=== PATIENT | female | born 1980 | race Hispanic/Latino ===

== ENCOUNTER 2017-04-19 23:04 | Emergency (ER) | payer SELFPAY ==
[~2017-04-19] VITALS: Ht 157.5 cm; Wt 71.8 kg
[~2017-04-19 23:04] MED LIST: ACET-1890 PO; DICY10CA56 PO; DICY20TA33 PO; FAMO20TA4 PO; HYDR2TAB28 PO; ONDA8TAB10 PO; TRAM50TA2 PO; [UNRECOGNIZED DRUG - REMARK] TOPICAL
[2017-04-19 23:06] VITALS: BP 127/90; RESP 16; O2SAT 98
--- NOTE | 2017-04-19 23:17 | ED.REPORT ---
HPI-Sore Throat ONLY HPI/PE done Apr 19, 2017 ED Provider: Nicola Andrea MD Pt is an otherwise healthy 36 year old female who presents to the ED complaining of throat pain onset yesterday. She c/o associated sore throat, fever (101, yesterday), odynophagia, and chills. She denies any other symptoms. Pt reports that she took Advil 1 hour prior to arrival with minimal relief. Nursing Notes Stated Complaint: SORE THROAT Chief Complaint: ENT & Mouth Nursing Notes Reviewed: Yes Allergies: Coded Allergies: shellfish derived (Verified Allergy, Severe, TONGUE, THROAT SWELLING, 04/19) Penicillins (Verified Allergy, Unknown, 04/19/17) Scheduled ([fentaNYL-Expunged Drug, Do Not Renew!]) 50 MCG/HR PATCH 50 PATCH TOPICAL Q3D@ 0830 Dicyclomine (Bentyl) 10 Mg Capsule 10 MG PO QID Prednisone (PredniSONE) 20 Mg Tablet 20 MG PO 04/19/17 Scheduled PRN Acetaminophen (Tylenol) 325 Mg Tablet 650 MG PO Q4H PRN PRN For Pain Dicyclomine (Bentyl) 20 Mg Tablet 20 MG PO QID PRN PRN cramps Famotidine (Famotidine) 20 Mg Tablet 20 MG PO DAILY PRN PRN For Epigastric Distress Hydromorphone (Hydromorphone) 2 Mg Tablet 2-4 MG PO Q3 PRN PRN For Pain Ondansetron ODT (Ondansetron ODT) 8 Mg Tab.rapdis 8 MG PO Q8 PRN PRN For Nausea Ondansetron ODT (Ondansetron ODT) 8 Mg Tab.rapdis 8 MG PO QID PRN PRN For Nausea Tramadol (Tramadol) 50 Mg Tablet 50 MG PO Q4H PRN PRN For Pain General Time Seen by MD: 23:16 Chief Complaint Other (sore throat) Hx Obtained From: Patient Arrived By: Walk-in Onset Occurred: Yesterday Symptom Duration: Since onset Location: : Tonsil left: Tonsil right Quality: Painful Severity: Current: Moderate Severity: Maximum: Moderate Recent Healthcare: No recent doctor visit, No recent hospitalization Similar Sx Previous: No Past Medical History Past Medical History Hx of ovarian cyst Past Surgical History Hernia repair Reports: Cholecystectomy Smoking History Never Smoker Social History Alcohol Use: Denies alcohol use Drug Use: Denies drug use Other Social History: Good social support, Lives with children, Local resident Occupation no work at this time, on L and [place] injury 04/2016 lives with significant other Ambulatory Status Independent Review of Systems + odynophagia Constitutional: Reports: Chills, Fever Ears / Nose / Throat: Reports: Sore throat, Throat pain Complete sys rev & neg: except as marked. Physical Exam Initial Vital Signs Vital Signs (First) Date Time Temp Pulse Resp B/P Pulse Ox O2 Delivery O2 Flow Rate FiO2 04/19/17 23:06 37.5 107 16 127/90 98 Room Air Initial VS: Reviewed, Vital signs abnormal Head / Eyes: Atraumatic, Normocephalic Respiratory: Breath sounds normal, Clear to auscultation, No respiratory distress Cardiovascular: Regular rate & rhythm, Heart sounds normal, Intact distal pulses Extremities: Vascular intact, Neuro intact Neurologic: Alert, Oriented, Nonfocal Psychiatric: Mood/affect normal, Behavior normal General/Constitutional: Awake, Alert Hot potato voice ENT: Airway patent, Tympanic membs NL Swollen tonsils; 3+ on left and 2+ on right. Neck: Full range of motion Tender bilateral anterior cervical adenopathy Skin: Atraumatic, No rash, Warm, Dry, Intact Interpretation & Diagnostics Lab Results Interpretation Lab Results Interpretation: Strep - positive Re-Eval/Medical Decision Med Decision/Clinical Course Uncomplicated strep pharyngitis without evidence of peritonsillar abscess or cellulitis. Source of Hx: Old records Re-Evaluation/Progress #1: Time of Eval: 23:23 Re-Evaluation/Progress Note: Pt rechecked. Tested pt for strep. All questions addressed. Re-Evaluation/Progress #2: Time of Eval: 23:39 Re-Evaluation/Progress Note: Pt rechecked. Informed pt of strep diagnosis. Informed pt of plan for discharge. Pt understands and agrees with plan for discharge. F/U instructions and RTER warnings given. All questions addressed. Counseled Regarding: Diagnosis, Need for follow-up, When/why to return to ED Discharge & Departure Primary Impression: Streptococcal sore throat Disposition: Home Discharge Condition All VS Reviewed: Yes Condition: Stable Patient Instructions: Strep Throat (ED) Additional Instructions: Strep throat. Azothromycin 250 mg, 2 pills now then 1 pill daily until gone, # 6 given. Prednisone 20 mg 3 times daily for 3 days to reduce pain and swelling. Drink lots of fluids. Acetaminophen (Tylenol( needed for pain. =====GOOGLE ========= Estreptococos en la garganta. Azothromycin 250 mg, 2 pastillas ahora despus 1 pastilla diaria hasta que desaparecido, #6 dado. Prednisona 20 mg 3 veces al d a brent 3 parra reducir el dolor y la hinchazn. Beber abundantes lquidos. Acetaminofn (Tylenol (necesitado para el dolor. Referrals: Mesfin Simms Attestation Portions of this note were transcribed by Ruth Freeman. I, Dr. Andrea personally performed the history, physical exam and medical decision-making; I reviewed and confirmed the accuracy of the information in the transcribed note. Signed by: Blanquita Ellison, 04/19/17. copies to: Mesfin Simms Howard L MD Apr 19, 2017 23:17 Ruth Mosqueda Apr 19, 2017 23:29
[2017-04-19] MEDS ORDERED: _Azithromycin 250 mg Tablet PO SCH (23:30)
[2017-04-19] MEDS ORDERED: predniSONE 20 mg Tablet PO ONE (23:30)
[2017-04-19] MEDS ORDERED: PRE20 PO (23:36)
[2017-04-19 23:58] VITALS: BP 126/88; PULSE 100; RESP 16; O2SAT 99
== END 2017-04-20 | disposition home or self-care (01) ==
LOC: SED 23:04
DX: J02.0 Streptococcal pharyngitis (principal); Z90.49 Acquired absence of other specified parts of digestive tract; Z91.013 Allergy to seafood; Z88.0 Allergy status to penicillin